=== PATIENT | female | born 1995 | race African-American/Black ===

== ENCOUNTER → 2019-04-03 | Outpatient (CLI) | payer OTHER ==
[2019-04-03 15:29] LABS: BASO # 0.1 x10^3/uL (0.0-0.2); BASO % 1 % (0-3); EOS # 0.2 x10^3/uL (0.0-0.7); EOS % 2 % (0-3); HEMATOCRIT 39.9 % (36.0-47.0); HEMOGLOBIN 13.7 g/dL (12.0-15.5); LYMPH # 2.5 x10^3/uL (1.0-4.8); LYMPH % 25 % (24-48); MEAN CORPUSCULAR HEMOGLOBIN 29 pg (25-35); MEAN CORPUSCULAR HGB CONC 34 g/dL (31-37); MEAN CORPUSCULAR VOLUME 86 fL (79-100); MONO # 0.7 x10^3/uL (0.0-1.1); MONO % 7 % (0-9); NEUT # 6.6 x10^3/uL (1.8-7.7); NEUT % 66 % (31-73); PLATELET COUNT 188 x10^3/uL (140-400); RED BLOOD COUNT 4.66 x10^6/uL (3.50-5.40); RED CELL DISTRIBUTION WIDTH 13.8 % (11.5-14.5); WHITE BLOOD COUNT 9.9 x10^3/uL (4.0-11.0)
[2019-04-03 15:59] LABS: FREE T4 0.87 ng/dL (0.76-1.46); THYROID STIM HORMONE (TSH) 0.504 uIU/mL (0.358-3.74)
[2019-04-04 02:08] LABS: TESTOSTERONE TOTAL 54 ng/dL (8-48)
== END | disposition home or self-care (01) ==
LOC: LAB 14:47
PROVIDERS: ATTEND Obstetrics & Gynecology
DX: N93.9 Abnormal uterine and vaginal bleeding, unspecified (principal); E03.9 Hypothyroidism, unspecified
CPT/HCPCS: 36415; 82627; 84146; 84403; 84439; 84443; 85025

== ENCOUNTER → 2019-04-11 | Outpatient (CLI) | payer OTHER ==
--- NOTE | 2019-04-11 08:11 | RAD ---
Examination: PELVIS COMPLETE History: Abnormal uterine bleeding Comparison/Correlation: None Findings: Transabdominal pelvic ultrasound exam was performed. Uterus measures 9.5 cm 4.4 cm x 3 cm. Myometrium is normal. Endometrial thickness is 1.1 cm. There is no intrauterine fluid collection. Myometrium is homogeneous in appearance. Right ovary measures 2.4 cm x 1.6 cm x 1.5 cm. Left ovary measures 3 cm x 3.4 cm x 2 cm. Left adnexal follicle is mildly complex in appearance. Small right mildly complex follicle is noted. These measure less than 1.4 cm diameter each and are likely physiologic. Normal ovarian flow bilaterally is present. No pelvic free fluid. Impression: No suspicious mass. Electronically signed by: Tawanda Morales MD (04/11/2019 8:08 AM) [facility]
== END | disposition home or self-care (01) ==
LOC: US 10:10
PROVIDERS: ATTEND Obstetrics & Gynecology
DX: N93.8 Other specified abnormal uterine and vaginal bleeding (principal)
CPT/HCPCS: 76856